=== PATIENT | female | born 1965 | race Caucasian/White ===

== ENCOUNTER 2022-02-04 13:29 | Emergency (ER) | payer OTHER ==
[~2022-02-04] VITALS: Ht 170.2 cm; Wt 97.5 kg
[2022-02-04] VITALS (7 sets, daily range): BP systolic 114–142; BP diastolic 73–90
[~2022-02-04 13:29] MED LIST: FLUOXETINE10 MG PO; GLUCOVANCE5 MG/500 M PO; HYZAAR1 TAB PO; LACRI-LUBE S.O.P. OS; LIQUITEARS OS; LISINOPRIL10 MG PO; METFORMIN HCL1000 MG PO; METFORMIN500 M1 PO; NAPROSYN375 MG PO; STERAPRED DS10 MG PO; VIT B12 PO
[2022-02-04] MEDS ORDERED: ULTRAM50 M1 PO (15:52)
== END 2022-02-04 16:15 | disposition home or self-care (01) ==
LOC: ED 13:29
DX: S46.912A Strain of unspecified muscle, fascia and tendon at shoulder and upper arm level, left arm, initial encounter (principal); I10 Essential (primary) hypertension; E11.9 Type 2 diabetes mellitus without complications; X50.0XXA Overexertion from strenuous movement or load, initial encounter; Y93.89 Activity, other specified; Y92.009 Unspecified place in unspecified non-institutional (private) residence as the place of occurrence of the external cause; Z79.84 Long term (current) use of oral hypoglycemic drugs